=== PATIENT | male | born 1985 | race Caucasian/White ===

== ENCOUNTER 2024-07-11 07:59 | Outpatient (CLI) | payer OTHER, SELFPAY ==
--- NOTE | 2024-08-01 23:48 | P.SLEEP_ITS ---
Sleep Study Date of Study: 07/11/24 Ordering Provider: John Feldman APRN Interpreting Physician: Princess Candelaria MD Sleep Study Type: Polysomnogram Height: 1.78 m Weight: 90.265 kg Body Mass Index: 28.5 Neck Circumference (inches): 16 [place]: 13 Reason for Sleep Study Hypersomnolence Sleep History Jerrod Morgan is a [id number] man with complaints of excessive daytimes sleepiness, excessive limb movements during sleep, difficulty getting to sleep and staying asleep. He frequently awakens from sleep feeling short of breath. He rarely awakens at night with heartburn, belching or coughing. He frequently snores loudly enough that others complain about it. He occasionally has difficulty sleeping when he has a cold. He frequently wakes up gasping for breath at night and has breathing problems at night observed by others. He rarely sweats excessively at night or notices his heart pounding or beating irregularly at night. He occasionally falls asleep during the day, rarely falls asleep involuntarily, never falls asleep while driving. He does not have loss of muscle tone with strong emotion. He rarely has daytime difficulties due to excessive sleepiness. He does not feel paralyzed on waking or falling asleep. He occasionally has vivid dreamlike scenes upon awakening or falling asleep. He does not feel afraid to go to sleep. He rarely has nightmares. He occasionally remembers his dreams. He constantly has racing thoughts. He rarely feels sad or depressed but frequently has anxiety. He occasionally notices parts of his body jerking, occasionally kicks at night. He rarely has crawling and aching feelings in his legs or any kind of leg pain at night. He does not have morning jaw pain. He rarely grinds his teeth during sleep. He occasionally is bothered by pain during the day, occasionally awakened by pain at night. He occasionally wakes up feeling stiff in the morning. He rarely wakes up with sore achy muscles or pain in the neck and spine. He has fatigue and insomnia. His office note indicates that he generally falls asleep on his stomach and then wakes up on his side or back. His symptoms are reportedly worse when he is on his back. He may take naps on the weekend which might help relieve his excessive sleepiness. He has tried melatonin in the past without benefit, had grogginess the next morning. He has seasonal allergies and uses cetirizine. Normal bedtime is 9:00 p.m. to 9:30 p.m., falling asleep sometimes after 1-3 hours of waiting. He typically wakes between 4 and 5 times during the night to toss and turn, tries to clear his mind and return to sleep. He estimates being awake between 30 minutes or up to 2-1/2 hours during these nighttime awakenings. His normal wake time is 6:00 a.m.. He keeps a similar schedule on weekends, bedtime is between 10:00 p.m. and 10:30 p.m., wake time is 8:00 a.m.. He estimates getting between 4 and 7 hours of sleep at night. He does not generally take naps in the afternoon or evening. A short nap lasting 10-15 minutes is not usually refreshing. He is usually drowsy for 2 hours or longer after waking. He feels better in the afternoon compared to other times of day. His sleep is often disturbed by heat or pain in the left shoulder. He does not work split shifts. He is in the [employer]. He reports a 5 lb weight gain in the last year. He frequently awakens feeling refreshed but he occasionally has morning headaches, rarely has heartburn at night and occasionally has memory and concentration problems. Habits: Tobacco: quit 5 years ago Caffeine: 2-3 servings per week Alcohol: none Recreational substances: none PMFSH Past Medical History Medical History Allergies Surgical History Surgical History S/P nasal surgery Social History Social History Smoking status: Former smoker Tobacco type: cigarettes Smoking end date: 10/04/18 Alcohol intake: current Alcohol use details: soc Substance use: never Substance use type: does not use Do You Feel Safe in your Home?: Yes Lack of Transportation: No Lack of Food: Never True Current Housing: I Have Housing Concerned About Future Housing: No Difficulty Paying Gas/Electric Bills: No Difficulty Paying for Meds: No Currently Unemployed: No Education: Decline to Answer Difficulty w/ Childcare or Family Care: No Living arrangements: with family Medications Home Medications Medication Instructions Recorded Confirmed Type cetirizine 10 mg capsule (Zyrtec) 10 mg PO DAILY PRN 04/07/24 04/07/24 History fluticasone propionate 50 intranasal 04/07/24 04/07/24 History mcg/actuation nasal spray,suspension eszopiclone 3 mg tablet 3 mg PO ONCE #1 tablet 07/07/24 Rx Sleep Procedure A full night polysomnogram using the Semmle multi-channel system recorded the standard physiologic parameters including EEG, EOG, submentalis EM G, anterior tibialis EMG, EKG, body position, nasal and oral airflow using nasal pressure sensor and thermistor. Respiratory parameters of chest and abdominal movements were recorded with Respiratory Inductance Plethysmography belts. Oxygen saturation was recorded by pulse oximetry. Video monitoring was also performed. Sleep stages, periodic limb movements, and EEG arousals were scored in 30 second epochs according to the criteria of the AASM Scoring Manual. The Apnea-Hypopnea Index was calculated using CMS guidelines for definition of hypopnea while scoring respiratory events. The patient self-administered eszopiclone 2 mg at the start of the study, and requested to be awake by 5:00 a.m. Sleep Architecture The total recording time was 428.4 minutes. The total sleep time was 263.0 minutes. Sleep latency was 15.4 minutes. REM latency was 248.0 minutes. Sleep efficiency was 61.4%. The patient had 59 awakenings for an awakening index of 13.5. Wake after sleep onset time was 150.5 minutes. The patient spent 49.0 minutes, 18.6% of total sleep time in Stage N1. The patient spent 166.0 minutes, 63.1% in Stage N2. The patient spent 4.0 minutes, 1.5% in Stage N3. The patient spent 44.0 minutes, 16.7% in Stage REM sleep. Respiratory Analysis The patient had 5 hypopneas, 2 obstructive apneas, 2 mixed apneas, and no central apneas for an overall Apnea Hypopnea Index of 1.8. The REM Apnea Hypopnea Index was 13.6. The NREM Apnea Hypopnea Index was 0.8. The patient had a Central Apnea Hypopnea Index of 0. There were no Respiratory Effort Related Arousals. The Respiratory Disturbance Index is 4.1 events per hour. There was no evidence of Yung-Neil Respirations. Arousals There were 103 total arousals for an arousal index of 23.5. There were 80 spontaneous arousals for an index of 18.3. There were 9 arousals due to respiratory events for an index of 2.1. There were 8 arousals due to periodic limb movements for an index of 1.8. There were 7 arousals due to isolated limb movements for an index of 1.6. Periodic Limb Movements The patient had 7 isolated limb movements with an index of 1.6. The patient had 13 periodic limb movements with an index of 3.0. Patient had a total of 20 limb movements with a total limb movement index of 4.6. Oximetry Data The patient had an average oxygen saturation of 93.5% in sleep with a minimum oxygen saturation of 82% and a maximum oxygen saturation of 99%. The patient had 22 oxygen desaturations that were 4% or greater resulting in an Oxygen Desaturation Index of 5.0. The patient spent 3.2 minutes, 0.8% of total sleep time with an oxygen saturation below 88%. Snoring Profile Snoring was mild, continuous for most of the night. Cardiac Profile EKG showed normal sinus rhythm, average pulse rate of 60 beats per minute, minimum pulse rate of 48 beats per minute, maximum pulse rate of 93 beats per minute. No arrhythmias noted. EEG Profile Unremarkable, no evidence of seizures. Assessment and Plan Assessment and Plan (1) Snoring: Code(s): R06.83 - Snoring Status: Acute Assessment and Plan: This basic nocturnal polysomnogram 07/11/2024 shows a normal apnea-hypopnea index of 1.8 with a minimum saturation of 82%. Patient spent 3.2 minutes below 88% which was 0.8% of the test, a small amount of time. He had moderate snoring during the night. He did not meet criteria for split night study. Positional therapy can be considered to prevent the patient from sleeping supine and administered using pillows and/or elevating the head by 30 degrees. Good sleep hygiene techniques should be reviewed to improve sleep quality. If patient is overweight, weight management is advised. Clinical data suggests that weight loss of 10% can reduce the severity of respiratory events and snoring and improve AHI by as much as 25%. Patients with snoring may benefit from evaluation of nasal passages for rhinitis with consideration of nasal steroids, nasal antihistamines or adhesive nasal dilators such as Breathe-Right strips. Data The data obtained during this sleep study is adequate for interpretation. Certification This sleep study has been reviewed by a board certified sleep medicine physician.
[2024-08-17 23:40] VITALS: BMI 28.5
== END 2024-07-12 05:21 | disposition home or self-care (01) ==
LOC: ANHCSM 08:01
PROVIDERS: Visit Provider Nurse Practitioner Family
DX: R06.83 Snoring (principal); G47.30 Sleep apnea, unspecified
CPT/HCPCS: 95810